=== PATIENT | male | born 1995 | race African-American/Black ===

== ENCOUNTER 2016-12-02 07:14 | Emergency (ER) | payer MEDICAID | END 2016-12-02 07:44 | disposition home or self-care (01) | LOC: D.ER 07:14 | DX: N49.2 Inflammatory disorders of scrotum (principal); L02.212 Cutaneous abscess of back [any part, except buttock and flank]; E03.9 Hypothyroidism, unspecified ==

== ENCOUNTER 2016-12-04 13:31 | Emergency (ER) | payer MEDICAID | END 2016-12-04 16:16 | disposition home or self-care (01) | LOC: D.ER 13:31 | DX: L03.315 Cellulitis of perineum (principal); L02.215 Cutaneous abscess of perineum; E03.9 Hypothyroidism, unspecified ==